=== PATIENT | female | born 1945 | race Caucasian/White ===

== ENCOUNTER 2020-07-20 07:54 | Outpatient (CLI) | payer MEDICARE, OTHER ==
[2020-07-20 16:24] LABS: #Eosinphils 0.2 thou/uL (0.0-0.7); #Lymphocytes 1.9 thou/uL (1.20-3.40); #Monocytes 0.6 thou/uL (0.11-0.59); %Basophils 0.4 % (0.0-1.0); %Eosinophils 2.1 % (0.0-10.0); %Lymphocytes 24.1 % (21.0-51.0); %Monocytes 7.7 % (0.0-10.0); %Neutrophils 65.7 % (42.0-75.0); Hemoglobin 12.5 g/dL (12.0-16.0); Mean Corpuscular HGB CONC 32.4 g/dL (32.0-36.0); Mean Corpuscular Hemoglobin 26.7 pg (27.0-31.0); Mean Corpuscular Volume 82.2 fL (78.0-98.0); Mean Platelet Volume 10.9 fL (7.4-10.4); Platelet Count 211 thou/uL (130-400); RBC Distribution Width 15.1 % (11.5-14.5); Red Blood Cell (RBC) Count 4.68 mill/uL (4.20-5.40); White Blood Cell (WBC) Count 7.7 thou/uL (4.8-10.8)
[2020-07-20 16:43] LABS: Anion Gap 15 mmol/L (10-20); BUN (Urea Nitrogen) 20 mg/dL (9.8-20.1); Calc. Creatinine Clearance 0 mL/min (70-130); Calcium 10.9 mg/dL (7.8-10.44); Carbon Dioxide 25 mmol/L (23-31); Chloride 103 mmol/L (98-107); Estimated GFR-MDRD 87; Glucose 91 mg/dL (83-110); Potassium 4.7 mmol/L (3.5-5.1); Sodium 138 mmol/L (136-145)
[2020-07-21 11:07] LABS: SARS-CoV-2 MS2 Positive; SARS-CoV-2 N Gene Negative; SARS-CoV-2 S Gene Negative; SARS-CoV-2 by NAA Not Detected (NotDetected); SARS-CoV-2 orf1ab Negative
== END 2020-07-20 07:55 | disposition home or self-care (01) ==
LOC: LABBT 07:54
PROVIDERS: ATTEND Specialist
DX: Z01.812 Encounter for preprocedural laboratory examination (principal); Z20.828 Contact with and (suspected) exposure to other viral communicable diseases; E66.01 Morbid (severe) obesity due to excess calories; I10 Essential (primary) hypertension; E78.00 Pure hypercholesterolemia, unspecified; E11.8 Type 2 diabetes mellitus with unspecified complications; Z68.37 Body mass index [BMI] 37.0-37.9, adult
CPT/HCPCS: 80048; 85025; U0003; 87635

== ENCOUNTER 2020-07-20 14:30 | Inpatient (IN) | payer MEDICARE ==
[2020-07-23] MEDS ORDERED: Acetaminophen 500 MG TAB ONE (09:03)
[2020-07-23] MEDS ORDERED: Scopolamine 1.5 mg/72 hour Patch ONE (09:04)
[2020-07-23] MEDS ORDERED: Heparin 5,000 UNITS/ML VIAL ONE (09:04)
[2020-07-23] MEDS ORDERED: Ketorolac Tromethamine 30 MG/ML VIAL ONE (09:04)
[2020-07-23] MEDS ORDERED: cefOXitin Sodium/Dextrose,Iso 2 GM in Premix Bag 1 BAG IVPB SCH (09:15)
[2020-07-23] MEDS ORDERED: Fentanyl 100 MCG/2 ML VIAL ONE ×3 (09:48→15:23)
[2020-07-23] MEDS ORDERED: HYDROmorphone 2 MG/ML VIAL ONE (09:49)
[2020-07-23] MEDS ORDERED: cefOXitin Sodium/Dextrose 2 GM/50 ML BAG ONE (10:00)
[2020-07-23] MEDS ORDERED: Bupivacaine/Epinephrine 0.25% 30 ML VIAL ONE (10:59)
[2020-07-23] MEDS ORDERED: Rocuronium Bromide 10 MG/ML (10ML VIAL) ONE (12:00)
[2020-07-23] MEDS ORDERED: Ondansetron PF 4 MG/2 ML Vial ONE (12:00)
[2020-07-23] MEDS ORDERED: Glycopyrrolate 0.2 MG/ML 5 ML SYRINGE ONE (12:00)
[2020-07-23] MEDS ORDERED: Lidocaine 1% PF 5 ML VIAL ONE (12:00)
[2020-07-23] MEDS ORDERED: EPHEDRINE 25 MG/5 ML SYRINGE ONE (12:00)
[2020-07-23] MEDS ORDERED: PROPOFOL 200 MG/20 ML VIAL ONE (12:00)
[2020-07-23] MEDS ORDERED: SUGAMMADEX SODIUM 200 MG/2 ML VIAL ONE (13:11)
[2020-07-23] MEDS ORDERED: Promethazine HCl 25 MG/ML VIAL SLOW IVP PRN (14:01)
[2020-07-23] MEDS ORDERED: Promethazine HCl 25 MG/ML VIAL IM PRN ×2 (14:01→15:38)
[2020-07-23] MEDS ORDERED: Meperidine HCl/PF 25 MG/ML VIAL SLOW IVP PRN (14:01)
[2020-07-23] MEDS ORDERED: HYDROmorphone 2 MG/ML VIAL SLOW IVP PRN (14:01)
[2020-07-23] MEDS ORDERED: diphenhydrAMINE 50 MG/ML VIAL IVP PRN (15:38)
[2020-07-23] MEDS ORDERED: Ondansetron PF 4 MG/2 ML Vial IVP PRN (15:38)
[2020-07-23] MEDS ORDERED: Morphine 2 MG/ML VIAL SLOW IVP PRN (15:38)
[2020-07-23] MEDS ORDERED: Dextrose 50% Abboject 50 ML SYRINGE SLOW IVP PRN (15:38)
[2020-07-23] MEDS ORDERED: Acetaminophen 650 MG/20.3 ML UDCUP PO PRN (15:38)
[2020-07-23] MEDS ORDERED: Hydrocodone-Acetamin 15 ML UDCUP PO PRN (15:38)
[2020-07-23] MEDS ORDERED: Morphine 4 MG/ML VIAL SLOW IVP PRN (15:38)
[2020-07-23] MEDS ORDERED: hydrALAZINE 20 MG/ML VIAL SLOW IVP PRN (15:38)
[2020-07-23] MEDS ORDERED: Dextrose 5% in Water 1,000 ML IV PRN (15:38)
[2020-07-23] MEDS ORDERED: Promethazine HCl 25 MG/ML VIAL ONE (16:03)
[2020-07-23 17:29] VITALS: BMI 35.3
[2020-07-23] MEDS: Ketorolac Tromethamine 30 MG/ML VIAL IVP SCH (18:15)
[2020-07-23] MEDS: 1/2 NS w/KCL 20 mEq 1,000 ML IV SCH (18:19)
[2020-07-23] MEDS: Carvedilol 25 MG TAB PO SCH (19:41)
[2020-07-23] MEDS ORDERED: Pramipexole Di-HCl 1 MG TAB PO SCH (21:00)
[2020-07-23] MEDS ORDERED: Enoxaparin Sodium 40 MG/0.4 ML SYRINGE SC SCH (21:00)
[2020-07-23] MEDS ORDERED: Atorvastatin Calcium 20 MG TAB PO SCH (21:00)
--- NOTE | 2020-07-23 21:53 | OP ---
DATE OF PROCEDURE: 07/23/2020 PREOPERATIVE DIAGNOSES: Morbid obesity and multiple obesity associated comorbidities. POSTOPERATIVE DIAGNOSES: Morbid obesity and multiple obesity associated comorbidities with a large supraumbilical hernia. PROCEDURES PERFORMED: Laparoscopic Jaycob-en-Y gastric bypass and open repair of ventral hernia without mesh. ANESTHESIA: General endotracheal. PUBLIC HEALTH ADVISOR: Latesha Gill MD (her assistance was necessary secondary to the complexity of the operation). INDICATIONS: The patient is a 74-year-old morbidly obese white female with multiple medical comorbidities. She has a twin sister of another patient of [facility] who has undergone bariatric surgery with excellent results. Ms. Mayers has undergone preoperative evaluation and education and presents at this time for a Jaycob-en-Y gastric bypass. This surgery was selected due to the extent of her reflux related problems. DESCRIPTION OF PROCEDURE: Informed consent was obtained. The patient was taken to the operating room, where general endotracheal anesthesia obtained with the patient in supine position. Abdomen was prepped with ChloraPrep and draped in sterile fashion. Local anesthetic was infiltrated prior to each incision using 0.25% Marcaine with epinephrine. A supraumbilical incision was created and Veress needle was passed into the abdominal cavity. It was difficult to discern the anatomy as I passed the needle internally. I therefore removed the needle and decided to gain entry into the abdominal cavity using the Optiview. Under direct vision with the scope within the trocar, the trocar was advanced and again the anatomy appeared quite abnormal. I never saw bowel was passing the trocar internally, but I could not tell at what point I had entered or passed through fascia. At some point, I stopped and decided to insufflate the gas and proved that I was within the abdominal cavity. Pneumoperitoneum was established. A 5 mm right subcostal port was placed and the camera was moved to that port. Looking back at the midline, it became quite obvious that there was a large ventral hernia and it appeared that the initial trocar port had been passed through the hernia into the abdominal cavity. There was a significant volume of fatty tissue and bowel present within the hernia. I placed the 12 mm right paramedian port as well as the 5 and 15 mm left-sided abdominal ports. I spent while reducing the hernia contents and it became obvious that the contents were adherent within the hernia sac as I could not reduce them. I attempted to dissect these adhesions from within the abdomen, but the anatomy and the depth of the hernia were such that it proved to be unsuccessful. I had difficulty pushing the hernia contents from the external into the abdominal cavity. At this point, I decided to create an open incision over the hernia to divide any residual adhesions, checked the bowel, which I was concerned, had been injured by the Veress needle, and repaired the hernia. A midline incision was created over the hernia in the supraumbilical location. Dissection was carried through skin and subcutaneous tissue. The hernia sac was identified and entered. I carefully identified the adhesions to the hernia sac and these were divided with sharp dissection as well as electrocautery. Once I had completely mobilized all adhesions, the hernia sac was excised. I then brought the colon that had been herniated through this extracorporeal, was able to identify 3 or 4 potentially injured areas. Most of these appeared to be serosal defects rather than punctures. These were each repaired with 3-0 silk sutures. I ran the segment of bowel that had been herniated and found no evidence of other injury. The bowel was then all passed back into the abdominal cavity. The fascia was closed with a running suture of #1 PDS. There was a large space and I decided to place a drain within this followed by closure. A #19 round fluted drain was placed and brought out through the right lower abdominal wall. It was secured externally with a 3-0 nylon suture. It was noted that the umbilicus had no attachment to the anterior abdominal wall. I therefore secured it down to the fascia with a single interrupted suture of 3-0 Vicryl. The wound was closed in layers with 3-0 and 4-0 Monocryl. Attention was then returned to the bariatric surgery. A 5 mm camera port was then placed adjacent to this incision. The omentum was split in the midline up to the transverse colon using the LigaSure. The ligament of Treitz was identified and the small bowel was traced 40 cm distally, which point it was divided with a single fire of the white load of the Aurelia stapler. 5 cm distal segment of bowel was devascularized using the LigaSure. I traced the small bowel 100 cm distally and at this juncture, anastomosed the Jaycob limb to the biliary limb with a single fire of the 60 mm Aurelia stapler. The common defect was closed with a transverse fire of the same stapler. The mesenteric defect was then closed with interrupted [id number]-cd-baggb sutures of 3-0 Vicryl. The patient was placed into reverse Trendelenburg position. A Jone retractor was passed through a 5 mm epigastric incision used to elevate the left lobe of the liver. The angle of His was bluntly dissected. A 5 cm from the gastroesophageal junction along the lesser curve, dissection was carried into the lesser sac. At this level, the stomach was partially transected with a fire of the blue load of the Aurelia stapler. A buttressing material was placed on the stapler prior to all of the fires involving the gastric pouch. Gastrotomy was created on the lower stomach and through this, the 25 mm anvil was passed into the upper pouch. Using the 5 mm band passer, the anvil was withdrawn through the anterior gastric wall just above the staple line. The gastrotomy was closed with 2 fires of the blue load of the Aurelia stapler. I then completed the gastric pouch with 2 additional fires up towards the angle of His. There was some minor bleeding at the upper edge of the pouch staple line that was quickly controlled with placement of a couple of hemoclips. The devascularized segment of the small bowel was brought into the upper abdomen and an enterotomy was created in this. The 25 mm EEA stapler was passed through the abdominal wall and through the enterotomy. It was advanced within the small bowel and the spike was advanced through the antimesenteric small bowel. This spike was secured to the anvil within the gastric pouch. The 2 segments of bowel were approximated and the stapler was fired to create the anastomosis at the gastrojejunostomy. The stapler was removed. The enterotomy was resected in continuity with the devascularized segment with a final firing of the white load of the stapler. The gastrojejunostomy anastomosis was buttressed with 3 interrupted sutures of 3-0 Vicryl. An orogastric tube was passed through the gastrojejunostomy, and through this, air was insufflated as a leak test while the anastomosis was under water. There was no evidence of air leak. The orogastrostomy tube was removed. All the irrigant within the abdomen was aspirated. The fascial defect at the 12 and 15 mm port sites were closed with 0 Vicryl suture using a GraNee needle. Jone retractor was removed. All ports and instruments were removed under direct vision. Pneumoperitoneum was carefully evacuated. Additional 0.25% Marcaine with epinephrine was infiltrated into each port site. Skin edges were approximated with 4-0 Monocryl subcuticular suture and Dermabond was placed externally over each incision. An occlusive dressing was applied over the drain exit site. There were no complications. The patient tolerated the procedure well and was taken to recovery room in stable condition. Job ID: [id number]
[2020-07-24] MEDS: Ketorolac Tromethamine 30 MG/ML VIAL IVP SCH ×3 (00:32→12:50)
[2020-07-24] MEDS: 1/2 NS w/KCL 20 mEq 1,000 ML IV SCH ×2 (00:40→04:45)
[2020-07-24 05:15] LABS: #Lymphocytes 1.1 thou/uL (1.20-3.40); #Monocytes 0.6 thou/uL (0.11-0.59); #Neutrophils 9.1 thou/uL (1.40-6.50); %Basophils 0.1 % (0.0-1.0); %Eosinophils 0.2 % (0.0-10.0); %Lymphocytes 10.5 % (21.0-51.0); %Monocytes 5.2 % (0.0-10.0); Hemoglobin 11.3 g/dL (12.0-16.0); Mean Corpuscular HGB CONC 33.2 g/dL (32.0-36.0); Mean Corpuscular Hemoglobin 27.5 pg (27.0-31.0); Mean Platelet Volume 9.9 fL (7.4-10.4); Platelet Count 171 thou/uL (130-400); Red Blood Cell (RBC) Count 4.11 mill/uL (4.20-5.40); White Blood Cell (WBC) Count 10.8 thou/uL (4.8-10.8)
[2020-07-24 05:42] LABS: Anion Gap 12 mmol/L (10-20); BUN (Urea Nitrogen) 19 mg/dL (9.8-20.1); Calc. Creatinine Clearance 90 mL/min (70-130); Calcium 8.8 mg/dL (7.8-10.44); Carbon Dioxide 23 mmol/L (23-31); Chloride 104 mmol/L (98-107); Estimated GFR-MDRD 75; Glucose 178 mg/dL (83-110); Potassium 4.4 mmol/L (3.5-5.1); Sodium 135 mmol/L (136-145)
[2020-07-24] MEDS: Insulin Regular 300 UNITS/3 ML VIAL SC PRN ×3 (06:08→15:36)
[2020-07-24] MEDS ORDERED: Lisinopril 20 MG TAB PO SCH (09:00)
[2020-07-24] MEDS ORDERED: Pantoprazole 40 MG VIAL IVP SCH (09:00)
[2020-07-24] MEDS: Carvedilol 25 MG TAB PO SCH (09:55)
[2020-07-24 16:23] VITALS: BP 96/61; TEMP 97.8
--- NOTE | 2020-07-27 12:41 | DIS ---
DATE OF ADMISSION: 07/23/2020 DATE OF DISCHARGE: 07/24/2020 ADMISSION DIAGNOSIS: Morbid obesity with multiple associated comorbidities. DISCHARGE DIAGNOSIS: Morbid obesity with multiple associated comorbidities. OPERATION/PROCEDURE PERFORMED: Laparoscopic Jaycob-en-Y gastric bypass and open repair of ventral hernia without mesh. ADMISSION HISTORY: Patient is a 74-year-old morbidly obese white female, who presented with obvious obesity, multiple medical problems associated with this. There was no knowledge of a ventral hernia present at the time of her surgery. Taken to the operating room at this time for gastric bypass. HOSPITAL COURSE: She was taken to the operating room, where a gastric bypass was performed uneventfully. Unfortunately, she was found to have a large ventral hernia above her umbilicus. This was incarcerated, could not be reduced even with laparoscopic assistance. I therefore had to make an open incision to reduce and fully repair this hernia. Her surgery was otherwise uneventful. She did well following surgery. She advanced her diet uneventfully. She did have some abdominal discomfort on postoperative day #1. She was therefore watched until later in the day. She was clearly tolerating her diet and appropriately active, was felt to be stable for discharge on postoperative day #1. She was given a discharge prescription for hydrocodone elixir and asked to follow up with myself in 2 weeks. Job ID: [id number]
== END 2020-07-24 18:45 | disposition home or self-care (01) | DRG 621 ==
LOC: SURG A 07-23 06:57 → SURG B 07-23 16:37
PROVIDERS: ADMIT Specialist; ATTEND Specialist
PROC: 0D164ZA Bypass Stomach to Jejunum, Percutaneous Endoscopic Approach (ICD-10-PCS; principal; 2020-07-23)
PROC: 0WQF0ZZ Repair Abdominal Wall, Open Approach (ICD-10-PCS; 2020-07-23)
PROC: 0WJF4ZZ Inspection of Abdominal Wall, Percutaneous Endoscopic Approach (ICD-10-PCS; 2020-07-23)
DX: E66.01 Morbid (severe) obesity due to excess calories (principal); K43.9 Ventral hernia without obstruction or gangrene; Z88.0 Allergy status to penicillin; Z88.6 Allergy status to analgesic agent; Z68.35 Body mass index [BMI] 35.0-35.9, adult; Z88.8 Allergy status to other drugs, medicaments and biological substances; E78.00 Pure hypercholesterolemia, unspecified; E11.9 Type 2 diabetes mellitus without complications; Z79.82 Long term (current) use of aspirin; Z79.84 Long term (current) use of oral hypoglycemic drugs; D64.9 Anemia, unspecified; M19.90 Unspecified osteoarthritis, unspecified site; I10 Essential (primary) hypertension; Z20.828 Contact with and (suspected) exposure to other viral communicable diseases
CPT/HCPCS: 36415; 36416; 80048; 85025; 87635; C9113; J0694; J1170; J1644; J1650; J1815; J1885; J2270; J2405; J2550; J2704; J3010; J3480; U0003

== ENCOUNTER 2022-03-01 11:02 | Observation (INO) | payer MEDICARE ==
[2022-02-28 13:43] VITALS: BMI 26.4
[2022-03-01] MEDS ORDERED: Acetaminophen 500 MG TAB ONE (12:02)
[2022-03-01] MEDS ORDERED: Ketorolac Tromethamine 30 MG/ML VIAL ONE (12:02)
[2022-03-01] MEDS ORDERED: fentaNYL Citrate/PF 100 MCG/2 ML SYRINGE ONE (12:59)
[2022-03-01] MEDS ORDERED: CEFAZOLIN 2 GM VIAL ONE (13:00)
[2022-03-01] MEDS ORDERED: Sodium Chloride 0.9% 100 ML ONE (13:00)
[2022-03-01] MEDS ORDERED: PHENYLEPHRINE-NS 100 MCG/ML 10 ML SYRINGE ONE (13:20)
[2022-03-01] MEDS ORDERED: Rocuronium Bromide 10 MG/ML (10ML VIAL) ONE (13:20)
[2022-03-01] MEDS ORDERED: Ondansetron PF 4 MG/2 ML Vial ONE (13:20)
[2022-03-01] MEDS ORDERED: Glycopyrrolate 0.2 MG/ML 5 ML SYRINGE ONE (13:20)
[2022-03-01] MEDS ORDERED: ePHEDrine 50 MG/ML VIAL ONE (13:20)
[2022-03-01] MEDS ORDERED: PROPOFOL 200 MG/20 ML VIAL ONE (13:20)
[2022-03-01] MEDS ORDERED: Lidocaine 1% PF 5 ML VIAL ONE (13:20)
[2022-03-01] MEDS ORDERED: Promethazine HCl 25 MG/ML VIAL IM PRN ×2 (15:49→17:58)
[2022-03-01] MEDS ORDERED: Promethazine HCl 25 MG/ML VIAL IVPB PRN (15:49)
[2022-03-01] MEDS ORDERED: Ondansetron HCl/PF 4 MG/2 ML Vial IVP PRN (15:49)
[2022-03-01] MEDS ORDERED: Fentanyl 100 MCG/2 ML VIAL ONE (16:14)
[2022-03-01] MEDS ORDERED: Ondansetron PF 4 MG/2 ML Vial IVP PRN (17:58)
[2022-03-01] MEDS ORDERED: HYDROcodone/Acetaminophen 7.5/325 mg Tablet PO PRN (17:58)
[2022-03-01] MEDS ORDERED: hydrALAZINE 20 MG/ML VIAL SLOW IVP PRN (17:58)
[2022-03-01] MEDS ORDERED: Morphine 2 MG/ML VIAL SLOW IVP PRN (17:58)
[2022-03-01] MEDS ORDERED: Lactated Ringer's 1,000 ML IV SCH (17:58)
[2022-03-01] MEDS ORDERED: Dextrose 50% Abboject 50 ML SYRINGE SLOW IVP PRN (17:58)
[2022-03-01] MEDS ORDERED: Insulin Regular 300 UNITS/3 ML VIAL SC PRN (17:58)
[2022-03-01] MEDS ORDERED: Morphine 4 MG/ML VIAL SLOW IVP PRN (17:58)
[2022-03-01] MEDS ORDERED: Dextrose 5% in Water 1,000 ML IV PRN (17:58)
[2022-03-01] MEDS ORDERED: Atorvastatin Calcium 20 MG TAB PO SCH (21:00)
[2022-03-01] MEDS: Oxybutynin 5 MG TAB PO SCH (21:03)
[2022-03-01] MEDS: Famotidine 20 MG TAB PO SCH (21:03)
[2022-03-02] MEDS: HYDROcodone/Acetaminophen 7.5/325 mg Tablet PO PRN ×3 (01:37→11:28)
[2022-03-02 05:42] LABS: #Lymphocytes 1.1 thou/uL (1.20-3.40); #Monocytes 0.7 thou/uL (0.11-0.59); #Neutrophils 9.5 thou/uL (1.40-6.50); %Basophils 0.2 % (0.0-1.0); %Eosinophils 0.3 % (0.0-10.0); %Lymphocytes 9.3 % (21.0-51.0); %Monocytes 5.9 % (0.0-10.0); %Neutrophils 84.4 % (42.0-75.0); Hemoglobin 10.4 g/dL (12.0-16.0); Mean Corpuscular HGB CONC 33.1 g/dL (32.0-36.0); Mean Corpuscular Hemoglobin 28.8 pg (27.0-31.0); Mean Corpuscular Volume 87.1 fL (78.0-98.0); Mean Platelet Volume 8.8 fL (7.4-10.4); Platelet Count 191 thou/uL (130-400); Red Blood Cell (RBC) Count 3.62 mill/uL (4.20-5.40); White Blood Cell (WBC) Count 11.3 thou/uL (4.8-10.8)
[2022-03-02 06:19] LABS: Anion Gap 12 mmol/L (10-20); BUN (Urea Nitrogen) 10 mg/dL (9.8-20.1); Calc. Creatinine Clearance 79 mL/min (70-130); Calcium 8.9 mg/dL (7.8-10.44); Carbon Dioxide 25 mmol/L (23-31); Chloride 102 mmol/L (98-107); Glucose 179 mg/dL (83-110); Sodium 135 mmol/L (136-145)
[2022-03-02 07:44] VITALS: BP 117/78; TEMP 98.2
[2022-03-02] MEDS ORDERED: metFORMIN XR 500 MG TAB PO SCH (08:00)
[2022-03-02] MEDS: Famotidine 20 MG TAB PO SCH (08:59)
[2022-03-02] MEDS: Oxybutynin 5 MG TAB PO SCH (08:59)
[2022-03-02] MEDS ORDERED: Lisinopril 20 MG TAB PO SCH (09:00)
== END 2022-03-02 11:48 | disposition home or self-care (01) ==
LOC: SDC 11:02 → EDSTATUS 11:05 → SURG B 15:50
PROVIDERS: ADMIT Specialist; ATTEND Specialist
PROC: 0JB80ZZ Excision of Abdomen Subcutaneous Tissue and Fascia, Open Approach (ICD-10-PCS; principal; 2022-03-01)
PROC: 0WQF0ZZ Repair Abdominal Wall, Open Approach (ICD-10-PCS; 2022-03-01)
DX: M79.3 Panniculitis, unspecified (principal); L30.4 Erythema intertrigo; K43.2 Incisional hernia without obstruction or gangrene; E11.9 Type 2 diabetes mellitus without complications; I10 Essential (primary) hypertension; M81.0 Age-related osteoporosis without current pathological fracture; M19.90 Unspecified osteoarthritis, unspecified site; Z87.891 Personal history of nicotine dependence; Z79.82 Long term (current) use of aspirin; Z79.84 Long term (current) use of oral hypoglycemic drugs; Z79.899 Other long term (current) drug therapy; Z88.0 Allergy status to penicillin; Z88.6 Allergy status to analgesic agent; Z88.8 Allergy status to other drugs, medicaments and biological substances; Z91.048 Other nonmedicinal substance allergy status; Z98.84 Bariatric surgery status
CPT/HCPCS: 36415; 36416; 80048; 85025; 88305; G0378; J1885; J2405; J2704; J3010; J3490; J7120